=== PATIENT | female | born 1945 | race Asian ===

== ENCOUNTER 2024-02-15 10:33 | Outpatient (CLI) | payer MEDICARE, SELFPAY ==
--- NOTE | 2024-02-15 11:00 | CT_ITS ---
Patient: KEANU REEVES Facility:?[facility] Patient ID:?[id number] Site Patient ID:?[id number]. Site :?[id number] Study:?CT-Spine Cervical C6 ONLY PER [facility]-02/15/2024 11:10:44 AM Ordering Physician:?DR. HERNANDEZ Final Report: Indication: 11MM ROUNDED AREA OF T2 PROLONGATION ALONG LEFT LATERAL ASPECT OF C6 VERTEBRAL BODY PER MRI Technique: Limited noncontrast CT of the cervical spine with localized imaging of the C6 vertebral body. Comparison: MRI 01/31/2024 Findings: Imaging field of view extends from the C5 superior endplate to the C7 inferior endplate. There is a 1 cm lucent lesion in the left aspect of the C6 vertebral body with no erosion of the cortex. There is a thickened trabeculation within the center of the lesion. Findings are consistent with benign intraosseous hemangioma. Severe disc height loss and endplate degenerative changes at C5-6 with anterior osteophytic spurring, disc osteophyte complex and uncovertebral joint hypertrophy. Severe right neural foraminal narrowing and mild left neural foraminal narrowing. Mild spinal canal stenosis. At C6-7, moderate disc space narrowing with endplate degenerative changes. Uncovertebral joint hypertrophy results in severe right and moderate left neural foraminal narrowing. No significant spinal canal stenosis. Impression: 1. In the C6 vertebral body on the left side, there is a 1 cm lucent lesion with well-circumscribed sharp margins and central trabeculation compatible with benign intraosseous hemangioma. 2. At C5-6 there is mild spinal canal stenosis, severe right neural foraminal narrowing and mild left neural foraminal narrowing. 3. At C6-7 there is severe right and moderate left neural foraminal narrowing. Please note that all CT scans at this facility use dose modulation, iterative reconstruction, and/or weight-based dosing when appropriate to reduce radiation dose to as low as reasonably achievable. Dictated by Ham Holley MD @ 02/16/2024 10:35:35 AM Signed by:?Ham Holley MD @02/16/2024 10:35:35 AM (Electronic Signature)
== END 2024-02-15 10:34 | disposition home or self-care (01) ==
PROVIDERS: PCP Family Medicine; Visit Provider Nurse Practitioner Gerontology
DX: M54.2 Cervicalgia (principal); M54.12 Radiculopathy, cervical region; M50.222 Other cervical disc displacement at C5-C6 level; M50.223 Other cervical disc displacement at C6-C7 level
CPT/HCPCS: 72125